=== PATIENT | male | born 1955 | race Caucasian/White ===

== ENCOUNTER 2020-08-31 09:55 | Outpatient (CLI) | payer OTHER, SELFPAY ==
--- NOTE | ~2020-08-31 | MMUS_ITS ---
EXAMINATION: MM diagnostic mammo BI, US breast BI complete HISTORY: Bilateral breast tenderness, pain. History of surgery for left gynecomastia 50 years ago. TECHNIQUE: MLO and cc views of each breast. CAD analysis was submitted and interpreted. High resoluti on complete bilateral breast ultrasound was performed. COMPARISON: None BREAST PARENCHYMAL COMPOSITION: There are scattered areas of fibroglandular density. FINDINGS: MAMMOGRAPHIC FINDINGS: Mild bilateral gynecomastia, right greater than left. No suspicious mass, architectural distortion, m alignant calcification, skin thickening or retraction of either breast is evident. ULTRASOUND: Fibroglandular stroma of the breasts is noted. No suspicious mass or shadowing is detected. IMPRESSION: 1. Bilateral gynecomastia 2. No mammographic evidence of malignancy BI-RADS Category 2: Benign finding(s). Reviewed, dictated and finalized at location A. IMPRESSION: 1. Bilateral gynecomastia 2. No mammographic evidence of malignancy BI-RADS Category 2: Benign finding(s).
== END 2020-08-31 09:56 | disposition home or self-care (01) ==
LOC: CHSIMG 10:00
PROVIDERS: PCP Family Medicine; Visit Provider Nurse Practitioner Psychiatric/Mental Health
DX: N64.4 Mastodynia (principal)
CPT/HCPCS: 76641; 77066

== ENCOUNTER 2021-05-17 07:44 | Outpatient (CLI) | payer MEDICARE, SELFPAY ==
--- NOTE | 2021-05-17 08:49 | EST_ITS ---
Patient Info Name: Dario Mckeon Age: 65 years : 1955 Gender: Male Ht: 67 in Wt: 308 lbs BSA: 2.65 m2 HR: 55 bpm BP: 151 / 95 mmHg Heart Rhythm: Bradycardia Technical Quality: Excellent Exam Date: 05/17/2021 9:32 AM Exam Location: [facility] Patient Status: Outpatient Admit Date: 05/17/2021 Staff Ordering Physician: Bianca, Santiago HASSAN Attending Provider: Bianca, Santiago HASSAN Exercise Technologist: Sonya Hernandez [employer] Exercise Physician: Eleanor Vaca CEP Exam Type: CA stress norm w NM Study Info Indications BATEMAN - A nuclear stress test was performed. History/Risk Factors Hypertension: Yes Dyslipidemia: Yes Obesity: Yes History/Risk Factors Dyslipidemia. Hypertension. Obesity. Summary 1. 1. Negative lexiscan stress test for ischemic ST changes by ECG criteria. 2. 2. Baseline hypertension. 3. 3. Nuclear scan to follow and will be reported separately. Please correlate with it. Protocol: LEXISCAN Stress ECG Details Stage: REST Duration (min): 3 min : 28 sec HR (bpm): 56 SBP (mmHg): 151 DBP (mmHg): 95 Stage: REST Duration (min): 3 min : 45 sec HR (bpm): 55 SBP (mmHg): 151 DBP (mmHg): 95 Stage: REST Duration (min): 9 min : 2 sec HR (bpm): 54 SBP (mmHg): 151 DBP (mmHg): 95 Stage: STAGE 1 Duration (min): 0 min : 24 sec HR (bpm): 55 SBP (mmHg): 151 DBP (mmHg): 95 Stage: RECOVERY Duration (min): 0 min : 35 sec HR (bpm): 68 SBP (mmHg): 151 DBP (mmHg): 95 Stage: RECOVERY Duration (min): 1 min : 35 sec HR (bpm): 79 SBP (mmHg): 151 DBP (mmHg): 95 Stage: RECOVERY Duration (min): 2 min : 35 sec HR (bpm): 74 SBP (mmHg): 169 DBP (mmHg): 89 Stage: RECOVERY Duration (min): 3 min : 35 sec HR (bpm): 71 SBP (mmHg): 163 DBP (mmHg): 98 Stage: RECOVERY Duration (min): 4 min : 35 sec HR (bpm): 67 SBP (mmHg): 160 DBP (mmHg): 97 Stage: RECOVERY Duration (min): 5 min : 35 sec HR (bpm): 68 SBP (mmHg): 158 DBP (mmHg): 93 Stage: RECOVERY Duration (min): 6 min : 3 sec HR (bpm): 64 SBP (mmHg): 154 DBP (mmHg): 92 Rest HR: 54 bpm Peak HR: 79 bpm Rest Sys BP: 151 mmHg Peak Sys BP: 169 mmHg Max Pred HR: 156 bpm % Max Pred HR: 51 % Target HR: 133 bpm Max RPP: 13,351 bpm*mmHg Termination Reason: Completion of Protocol Cardiac Symptoms: stomach discomfort, flushing, Dyspnea Total Time: 0 min : 24 sec Rest Serrano BP: 95 mmHg Peak Serrano BP: 89 mmHg Total Dose: 0.4 mg Resting ECG Sinus bradycardia, borderline ST-T wave in anterolateral leads. Stress ECG No abnormal ST/T wave changes. Arrhythmias Isolated PVC. Report Signatures
--- NOTE | 2021-05-17 12:03 | WPDCARIOSTRE ---
Nuclear Stress Test INDICATIONS Indications: BATEMAN PROCEDURE Procedure Performed: Myocardial Perf Spect-Multi Procedure: Patient underwent a lexiscan stress test and immediately was injected with 34.8 mCi of cardiolyte. Multiple tomographic images were obtained. These are of good quality. There is evidence of moderate size, moderate severity mid anterior perfusion defect during stress imaging. A separate resting images were obtained after patient was injected with 10 mCi of cardiolyte. Multiple tomographic images were obtained. These are of good quality. There is no perfusion defects noted during rest imaging. CONCLUSION Conclusion: 1. Abnormal myocardial perfusion imaging demonstrating moderate size mid anterior perfusion defect during stress imaging consistent with reversible ischemia. 2. Left ventriculogram demonstrates normal measured ejection fraction of 54% with no wall motion abnormalities. 3. TID score is elevated at 1.25 which does visually dilate which cannot rule out triple vessel disease or left main disease.
== END 2021-05-17 07:45 | disposition home or self-care (01) ==
LOC: CHSCARD 07:45
PROVIDERS: PCP Family Medicine; Visit Provider Family Medicine
DX: R06.00 Dyspnea, unspecified (principal)
CPT/HCPCS: 78452; 93017; A9502; J2785

== ENCOUNTER 2021-06-21 11:33 | Outpatient (CLI) | payer MEDICARE, SELFPAY ==
[2021-06-21 12:16] LABS: Hematocrit 43.6 % (40.0-54.0); Hemoglobin 14.4 g/dL (14.0-18.0); Mean Corpuscular Hemoglobin 31.1 pg (27.0-31.0); Mean Corpuscular Volume 94.2 fL (78.0-102.0); Mean Platelet Volume 9.5 fl (8.7-11.0); Platelet Count Result 290 K/mm3 (150-420); Red Blood Count 4.63 M/mm3 (4.70-6.10); Red Cell Distribution Width 13.3 % (11.6-14.4)
[2021-06-21 12:30] LABS: Anion Gap 9 mmol/L (8-16); Blood Urea Nitrogen 12 mg/dL (7-18); Calcium 8.8 mg/dL (8.5-10.1); Carbon Dioxide 27 mmol/L (21-32); Chloride 102 mmol/L (98-108); Estimated Glomerular Filt Rate > 60; Glucose 111 mg/dL (70-99); Osmolality Calculated 286 mOsm/kg (285-295); Potassium 3.7 mmol/L (3.5-5.1); Sodium 138 mmol/L (136-145)
== END 2021-06-21 11:34 | disposition home or self-care (01) ==
LOC: CHSLAB 11:37
PROVIDERS: PCP Family Medicine
DX: R94.39 Abnormal result of other cardiovascular function study (principal)
CPT/HCPCS: 36415; 80048; 85027

== ENCOUNTER 2022-09-27 08:37 | Outpatient (CLI) | payer MEDICARE, SELFPAY ==
[2022-09-27 09:02] LABS: Base Excess ABG -0.3 mmol/L (0-2); HCO3 ABG 23.2 mmol/L (23-29); Oxygen Content ABG 20.1 %vol (16.0-22.0); Oxygen Saturation ABG 96.7 % (95-97); Oxyhemoglobin 95.8 % (94-100); PCO2 ABG 34.5 mmHg (35-45); PO2 ABG 81.3 mmHg (80-90); Total Hemoglobin 14.9 g/dL (12.0-18.0); pH ABG 7.45 (7.35-7.45)
[2022-09-27 09:06] LABS: Device ROOM AIR; Modified Allen's Test Pass; Site Drawn LEFT RADIAL
== END 2022-09-27 08:38 | disposition home or self-care (01) ==
LOC: CHSLAB 08:40
PROVIDERS: PCP Family Medicine
DX: R06.02 Shortness of breath (principal)
CPT/HCPCS: 36600; 82805

== ENCOUNTER 2023-03-27 13:45 | Outpatient (CLI) | payer MEDICARE, SELFPAY ==
[2023-03-27 14:27] LABS: Anion Gap 10 mmol/L (8-16); Blood Urea Nitrogen 14 mg/dL (7-18); Calcium 8.9 mg/dL (8.5-10.1); Carbon Dioxide 29 mmol/L (21-32); Chloride 103 mmol/L (98-108); Estimated Glomerular Filt Rate > 60; Glucose 128 mg/dL (70-99); Osmolality Calculated 296 mOsm/kg (285-295); Potassium 3.6 mmol/L (3.5-5.1); Sodium 142 mmol/L (136-145)
== END 2023-03-27 13:46 | disposition home or self-care (01) ==
LOC: CHSLAB 13:48
PROVIDERS: PCP Family Medicine
DX: I49.3 Ventricular premature depolarization (principal)
CPT/HCPCS: 36415; 80048